=== PATIENT | male | born 1935 | race Caucasian/White ===

== ENCOUNTER 2022-09-25 16:42 | Emergency (ER) | payer MEDICARE ==
[~2022-09-25] VITALS: Ht 180.3 cm; Wt 81.6 kg
[2022-09-25] MEDS ORDERED: BACITRACIN 1 EACH PACKET TP ONE ×2 (19:25→19:30)
[2022-09-25] MEDS: TETANUS/DIPHTHERIA TOXOID [ADULT] 0.5 ML VIAL IM ONE ×2 (19:27→19:49)
[2022-09-25] MEDS ORDERED: TETANUS/DIPHTHERIA TOXOID [ADULT] 0.5 ML VIAL IM ONE (19:30)
[2022-09-25 19:51] VITALS: BP 158/89
== END 2022-09-25 20:02 | disposition home or self-care (01) ==
LOC: EDH 16:42
DX: S00.83XA Contusion of other part of head, initial encounter (principal); M48.32 Traumatic spondylopathy, cervical region; I10 Essential (primary) hypertension; W18.09XA Striking against other object with subsequent fall, initial encounter; Y93.89 Activity, other specified; Y92.89 Other specified places as the place of occurrence of the external cause; Y99.8 Other external cause status
CPT/HCPCS: 70450; 70486; 72125; 90471; 90714

== ENCOUNTER 2023-01-14 13:08 | Emergency (ER) | payer MEDICARE ==
[~2023-01-14] VITALS: Ht 180.3 cm; Wt 82.1 kg
[2023-01-14] MEDS ORDERED: POLY17PO4 PO (14:46)
[2023-01-14] MEDS ORDERED: GOLY4L PO (14:46)
[2023-01-14] MEDS ORDERED: DOCU-116 PO (14:46)
[2023-01-14 15:15] VITALS: BP 132/78
== END 2023-01-14 15:17 | disposition home or self-care (01) ==
LOC: EDH 13:08
DX: K59.00 Constipation, unspecified (principal); I10 Essential (primary) hypertension; Z98.890 Other specified postprocedural states
CPT/HCPCS: 74018

== ENCOUNTER → 2023-04-17 | Outpatient (CLI) | payer MEDICARE ==
[~2023-04-17] MED LIST: DOCU-116 PO; GOLY4L PO; POLY17PO4 PO
== END | disposition home or self-care (01) ==
LOC: RAH 08:34
PROVIDERS: ATTEND Family Medicine
DX: Z13.820 Encounter for screening for osteoporosis (principal); M81.0 Age-related osteoporosis without current pathological fracture
CPT/HCPCS: 77080

== ENCOUNTER 2023-08-04 13:00 | Emergency (ER) | payer MEDICARE ==
[~2023-08-04] VITALS: Ht 180.3 cm; Wt 79.4 kg
[2023-08-04 13:01] VITALS: BP 179/86; PULSE 68; RESP 14
[2023-08-04] MEDS ORDERED: POLY17PO4 PO (16:27)
[2023-08-04] MEDS ORDERED: LACTULOSE 20 GM/30 ML UDCUP PO SCH (16:30)
[2023-08-04] MEDS ORDERED: LACTULOSE 20 GM/30 ML UDCUP ONE (16:33)
== END 2023-08-04 16:42 | disposition home or self-care (01) ==
LOC: EDH 13:00
DX: K59.00 Constipation, unspecified (principal); I10 Essential (primary) hypertension

== ENCOUNTER 2024-09-25 12:41 | Emergency (ER) | payer MEDICARE ==
[~2024-09-25] VITALS: Ht 180.3 cm; Wt 79.8 kg
[2024-09-25 12:45] VITALS: BP 193/101; PULSE 94; RESP 16; TEMP 97.9
--- NOTE | 2024-09-25 13:39 | HMCIMG ---
Exam: NONCONTRAST CT BRAIN REASON: fall. COMPARISON: None. TECHNIQUE: Images are obtained from vertex to the skull base. The exam was performed without IV contrast. FINDINGS: There are generous ventricles and sulci. There is decreased attenuation in the deep central white matter. These findings are consistent with atrophy. There are no acute appearing focal parenchymal lesions. There is no evidence of mass, intracranial hemorrhage or acute stroke. Posterior fossa and brainstem structures appear unremarkable. There are no abnormal fluid collections. Extra cranial soft tissues appear unremarkable as well. IMPRESSION: 1. Atrophy, no acute finding. CT was performed with one or more following dose reduction techniques: automated exposure control, adjustment of the mA and kv according to patient's size, or use of a iterative reconstruction technique.
--- NOTE | 2024-09-25 15:00 | HMCIMG ---
WRIST COMP 3+VWS LT REASON: fall TECHNIQUE: 3 views were obtained. FINDINGS: There is no evidence of fracture or dislocation. There is no joint effusion. The soft tissues appear unremarkable. There is no evidence of a radiopaque foreign body. 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 IMPRESSION: No acute findings.
--- NOTE | 2024-09-25 15:11 | ERN ---
General Chief Complaint: Mechanical Fall Stated Complaint: MECHANICAL FALL Source: patient History of Present Illness Initial Comments Patient is a an 89-year-old male coming in to be evaluated for a fall. Patient states he fell back hit himself in the head in his here further evaluation. He did not lose consciousness also states that he had himself in the wrist area. Allergies: Coded Allergies: No Known Allergies (Unverified Allergy, Unknown, 09/25/22) Home Meds Active Scripts Polyethylene Glycol 3350 (Miralax) 17 Gram Powd.pack, 17 GM PO DAILY for 30 Days, #30 PACK 0 Refills Prov:LEONIE HARDING NP 08/04/23 Peg 3350/Na Sulf,Bicarb,Cl/KCl (Golytely/Colyte Soln) 1 Ml Soln, 4000 ML PO ONCE for constipation, #4000 ML 0 Refills Make sure to follow the instructions in the package. Prov:ANTHONY BUITRAGO MD 01/14/23 Polyethylene Glycol 3350 (Miralax) 17 Gm Powd.pack, 1 PKT PO DAILY for constipation, #15 PT 0 Refills Prov:ANTHONY BUITRAGO MD 01/14/23 Docusate Sodium (Colace) 100 Mg Capsule, 100 MG PO TID for constipation, #30 CAP 0 Refills Prov:ANTHONY BUITRAGO MD 01/14/23 Past Medical History Past Medical History: Constipation, Hypertension Past Surgical History: Other Surgical History Other: HERNIA Social History Social History: Negative, Lives with family ROS Dictation CONSTITUTIONAL: No chills, no fever, no weakness, no diaphoresis, no malaise. HEAD/FACE: No signs of trauma. EENT: No eye pain, no blurred vision, no tearing, no double vision, no ear pain, no ear discharge, no nose pain, no nasal congestion, no throat pain, no throat swelling, no mouth pain. RESPIRATORY: No cough, no orthopnea, no SOB, no stridor, no wheezing. CARDIOVASCULAR: No chest pain, no edema, no palpitations, no syncope. GASTROINTESTINAL/ABDOMINAL: No abdominal pain, no constipation, no diarrhea, no nausea, no vomiting. GENITOURINARY: No abnormal discharge, no dysuria, no frequent urination, no hematuria. No complaints of pain in the genitals. MUSCULOSKELETAL: No back pain, no gout, no joint pain, no joint swelling, no muscle pain, no muscle stiffness, no neck pain. INTEGUMENTARY: No change in color, no change in hair/nails, no dryness, no lesion, no lumps, no rash. NEUROLOGICAL/PSYCH: No anxiety, not depressed, no emotional problem, no headache, no numbness, no pre-existing deficit, no history of seizures, no tremors, no weakness. HEMATOLOGIC/LYMPHATIC: Not anemic, no history of blood clots, no apparent bleeding, no bruising, glands not swollen. All Systems Negative, Except as Noted. Physical Exam Physical Exam Dictation VITAL SIGNS: Reviewed. GENERAL APPEARANCE: Alert, oriented x3, no acute distress, obese. HEAD AND FACE: Non-traumatic. EYES: PERRL, pink conjunctivas, eyelid no trauma, anterior chamber clear. EARS: Pinnas intact and no signs of trauma or erythema. Ear canals clear and no discharge. TMs no erythema. NOSE: No discharge, no bleeding. OROPHARYNX: Mouth normal, teeth no caries, tongue pink. Pharynx clear, no erythema. Tonsils no exudates, no abscesses noted. Mucous membrane moist. NECK: Supple, non-tender, no thyromegaly, no masses, no JVD, no bruits. BREAST: Deferred. CHEST: No tenderness, no crepitus, no paradoxical movement, no retractions. LUNGS: Clear, well-ventilated, symmetric, no rales, no wheezing, no rhonchi, no stridor, good breath sounds bilaterally. HEART: Regular rate, regular rhythm, no murmur, no gallops. VASCULAR: No peripheral edema. ABDOMEN: Soft, positive bowel sounds, nondistended, no guarding, nontender, no rebound, no masses no hepatomegaly, no splenomegaly, no Salcido's sign, no hernias. RECTAL: Deferred. GENITAL: Deferred. NEUROLOGICAL: Normal speech, gross motor function intact, gross sensory function intact. MUSCULOSKELETAL: Neck nontender, full range of motion, back nontender, full range of motion. EXTREMITIES: Nontender, full range of motion. SKIN: Color pink, dry, no turgor, no rash, no lacerations, no abrasions, no contusions. LYMPHATICS: Deferred. Results Laboratory and Microbiology Labs Reviewed?: Yes EKG/XRAY/US/CT/MRI X-RAY Comment [address] [place], [place] [address] IMAGING REPORT Signed PATIENT: LEONORA CARSON JR MR#: [id number] : 1935 SEX: M AGE: 89 LOCATION: ED ORDER 50 STATUS: [facility] REPORT#: [id number] SERVICE 125 REASON: fall ORDERING PHYSICIAN: FIDEL MAGANA MD PROCEDURE: WRST 3V LT - WRIST COMP 3+VWS LT WRIST COMP 3+VWS LT REASON: fall TECHNIQUE: 3 views were obtained. FINDINGS: There is no evidence of fracture or dislocation. There is no joint effusion. The soft tissues appear unremarkable. There is no evidence of a radiopaque foreign body. 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 IMPRESSION: No acute findings. DICTATED BY: DARIUS VALDOVINOS MD DATE: 09/25/241456 ELECTRONICALLY SIGNED BY: DARIUS VALDOVINOS MD DATE: 09/25/[address] Scan Comment [address] [address] IMAGING REPORT Signed PATIENT: LEONORA CARSON JR MR#: [id number] : 1935 SEX: M AGE: 89 LOCATION: ED ORDER 50 STATUS: [facility] ER REPORT#: [id number] SERVICE 125 REASON: fall ORDERING PHYSICIAN: FIDEL MAGANA MD PROCEDURE: HEAD WO - CT HEAD/BRAIN W/O CONTRAST Exam: NONCONTRAST CT BRAIN REASON: fall. COMPARISON: None. TECHNIQUE: Images are obtained from vertex to the skull base. The exam was performed without IV contrast. FINDINGS: There are generous ventricles and sulci. There is decreased attenuation in the deep central white matter. These findings are consistent with atrophy. There are no acute appearing focal parenchymal lesions. There is no evidence of mass, intracranial hemorrhage or acute stroke. Posterior fossa and brainstem structures appear unremarkable. There are no abnormal fluid collections. Extra cranial soft tissues appear unremarkable as well. IMPRESSION: 1. Atrophy, no acute finding. CT was performed with one or more following dose reduction techniques: automated exposure control, adjustment of the mA and kv according to patient's size, or use of a iterative reconstruction technique. DICTATED BY: DARIUS VALDOVINOS MD DATE: 09/25/241336 ELECTRONICALLY SIGNED BY: DARIUS VALDOVINOS MD DATE: 09/25/241338 [facility] MDM: Differential diagnosis: Fall, head injury, Patient is a 89-year-old male coming in to be evaluated after he had a fall. Per patient he had a mechanical fall earlier today was seen by his PCP sent over for further evaluation. Patient does not take anticoagulation. CT and x-rays were negative for acute findings. Patient will be discharged in stable condition with diagnosis of fall. ED Course Orders Procedure Category Date Status Time Ct Head/Brain W/O CT 09/25/24 Resulted Contrast 12:50 Wrist Comp 3+Vws Lt RAD 09/25/24 Resulted 12:50 Vital Signs Date Time Temp Pulse Resp B/P (MAP) Pulse Ox O2 Delivery O2 Flow Rate FiO2 09/25/24 12:45 97.9 94 16 193/101 96 Room Air 0 DX & DISP Disposition: Discharge Departure Impression: Primary Impression: Accident due to mechanical fall without injury Condition: Stable Additional Instructions: FOLLOW-UP WITH PRIMARY CARE PROVIDER IN 1 TO 2 DAYS. TAKE MEDICATIONS DIRECTED HERE IN THE EMERGENCY ROOM. OKAY TO CONTINUE HOME MEDICATIONS UNLESS OTHERWISE DISCUSSED DURING YOUR VISIT IN THE EMERGENCY ROOM TODAY. RETURN TO YOUR NEAREST EMERGENCY ROOM IF SYMPTOMS WORSEN OR IF THERE IS NO IMPROVEMENT. CALL 911 IF YOU NEED IMMEDIATE ASSISTANCE. TAKE TYLENOL [id number] NEEDED AND IF NO CONTRAINDICATIONS ARE PRESENT. INCREASE ORAL HYDRATION. A WOUND CULTURE OR URINE CULTURE WAS ORDERED HERE IN THE EMERGENCY ROOM DEPARTMENT PLEASE FOLLOW-UP WITH PRIMARY CARE PROVIDER AND ADVISE THEM TO GET REPEAT PORTS FROM OUR FACILITY. IF YOU HAD ANY JAM WRAP/SPLINTS THAT WERE APPLIED HERE, PLEASE DO NOT REMOVE THEM UNTIL YOU SEE YOUR PRIMARY CARE OR SPECIALTY. Referrals: Referrals: ESTRELLITA SMITH MD (PCP) Time of Disposition: 15:11 FIDEL MAGANA MD Sep 25, 2024 15:11
== END 2024-09-25 15:20 | disposition home or self-care (01) ==
LOC: EDH 12:41
DX: R51.9 Headache, unspecified (principal); I10 Essential (primary) hypertension; Z98.890 Other specified postprocedural states; W18.39XA Other fall on same level, initial encounter; Y93.89 Activity, other specified; Y92.89 Other specified places as the place of occurrence of the external cause; Y99.8 Other external cause status
CPT/HCPCS: 70450; 73110; 99284